=== PATIENT | female | born 1985 | race Caucasian/White ===

== ENCOUNTER → 2018-04-13 11:32 | Outpatient (CLI) | payer OTHER, SELFPAY ==
[2018-04-13 13:17] LABS: Hematocrit 37.2 % (36-46); Hemoglobin 12.7 g/dL (12.0-16.0)
[2018-04-13 14:19] LABS: GTT (PREG) 1 Hour PP 50gm Dose 98 mg/dL (76-139)
== END ==
PROVIDERS: Visit Provider Obstetrics & Gynecology
DX: Z34.82 Encounter for supervision of other normal pregnancy, second trimester (principal)
CPT/HCPCS: 36415; 82950; 85014; 85018

== ENCOUNTER 2018-04-22 09:18 | Outpatient (CLI) | payer OTHER, SELFPAY ==
--- NOTE | 2018-04-22 10:43 | PM.OBTRLD ---
Visit Information Visit Information Date of evaluation: 04/22/18 Primary OB Provider: Lynne Bland Reason for Evaluation: Yes non-stress test Comments/Additional reasons for admission: 33wks h/o stillbirth anxious Evaluation Evaluation Baseline heart rate: 145 Variability: Moderate (11-25) monitor accelerations: Present monitor decelerations: Absent Category of Tracing: I
== END 2018-04-22 10:50 | disposition home or self-care (01) ==
LOC: LABOR 10:12 → OB 04-23 13:09
PROVIDERS: Visit Provider Obstetrics & Gynecology
DX: O09.293 Supervision of pregnancy with other poor reproductive or obstetric history, third trimester (principal); Z3A.33 33 weeks gestation of pregnancy
CPT/HCPCS: 59025; G0378; G0379

== ENCOUNTER → 2018-05-12 14:54 | Outpatient (CLI) | payer OTHER, SELFPAY ==
[2018-05-13 14:20] LABS: Strep Grp B PCR POS for Grp B Strep
== END ==
PROVIDERS: Visit Provider Obstetrics & Gynecology
DX: Z34.83 Encounter for supervision of other normal pregnancy, third trimester (principal)
CPT/HCPCS: 87653

== ENCOUNTER 2018-05-12 15:22 | Outpatient (CLI) | payer OTHER, SELFPAY ==
--- NOTE | 2018-05-13 09:09 | PM.OBTRLD ---
Visit Information Visit Information Date of evaluation: 05/12/18 Primary OB Provider: Lynne Bland Reason for Evaluation: Yes non-stress test Comments/Additional reasons for admission: Decreased movement Evaluation Evaluation Baseline heart rate: 130 Variability: Moderate (11-25) monitor accelerations: Present monitor decelerations: Absent Category of Tracing: I Diagnosis, Plan/Disposition Plan/Disposition Plan: Discharge to home kick counts OB Disposition: home
== END 2018-05-12 15:57 | disposition home or self-care (01) ==
LOC: LABOR 15:40 → OB 05-14 14:45
PROVIDERS: Visit Provider Obstetrics & Gynecology
DX: Z34.83 Encounter for supervision of other normal pregnancy, third trimester (principal); Z3A.36 36 weeks gestation of pregnancy
CPT/HCPCS: 59025; 87653; G0378; G0379

== ENCOUNTER 2018-05-19 11:26 | Outpatient (CLI) | payer OTHER, SELFPAY ==
--- NOTE | 2018-05-20 20:45 | P.TNLD_ITS ---
Visit Information Visit Information Date of evaluation: 05/19/18 Primary OB Provider: Lynne Bland Reason for Evaluation: Yes non-stress test non-stress test reason: other ( history of stillbirth) Comments/Additional reasons for admission: history of stillbirth Evaluation Evaluation Baseline heart rate: 150 Variability: Moderate (11-25) monitor accelerations: Present monitor decelerations: Absent Uterine Contraction Intensity: Mild Category of Tracing: I
== END 2018-05-19 12:25 | disposition home or self-care (01) ==
LOC: LABOR 13:56 → OB 11-02 15:22
PROVIDERS: Visit Provider Obstetrics & Gynecology
DX: Z34.83 Encounter for supervision of other normal pregnancy, third trimester (principal); Z3A.37 37 weeks gestation of pregnancy
CPT/HCPCS: 59025; G0378; G0379

== ENCOUNTER 2018-05-26 15:08 | Outpatient (CLI) | payer OTHER, SELFPAY ==
--- NOTE | 2018-05-26 15:50 | PM.OBTRLD ---
Visit Information Visit Information Date of evaluation: 05/26/18 Primary OB Provider: Lynne Bland Reason for Evaluation: Yes non-stress test non-stress test reason: other (h/o stillbirth) Evaluation Evaluation Baseline heart rate: 135 Variability: Moderate (11-25) monitor accelerations: Present monitor decelerations: Absent Category of Tracing: I Diagnosis, Plan/Disposition Final Diagnosis (1) 38 weeks gestation of : Current Visit: Yes Status: Acute (2) History of stillbirth: Current Visit: Yes Status: Acute Plan/Disposition Plan: 39 weeks History of stillbirth Plan: Induction 06/02/18
== END 2018-05-26 15:55 | disposition home or self-care (01) ==
LOC: OB 05-28 14:39
PROVIDERS: Visit Provider Obstetrics & Gynecology
DX: Z34.83 Encounter for supervision of other normal pregnancy, third trimester (principal); Z3A.38 38 weeks gestation of pregnancy
CPT/HCPCS: 59025; G0378; G0379

== ENCOUNTER 2018-06-02 07:06 | Inpatient (IN) | payer OTHER, SELFPAY ==
[2018-06-02 08:53] LABS: Add Manual Diff / Slide Review NO; Basophils Percent Auto 0.2 % (0-2); Eosinophils Percent Auto 0.6 % (2-4); Hematocrit 36.9 % (36-46); Hemoglobin 12.7 g/dL (12.0-16.0); Lymphocytes Percent Auto 14.3 % (25-40); Mean Corpuscular HGB Conc 34.5 % (30-36); Mean Corpuscular Hemoglobin 30.9 PG (26-34); Mean Corpuscular Volume 89.5 fL (80-100); Neutrophils Absolute Auto 8000 /uL (3000-5900); Neutrophils Percent Auto 77.9 % (50-75); Platelet Count 172 X10^3/uL (150-400); Red Blood Cell Count 4.12 X10^6/uL (4.0-5.2); White Blood Cell Count 10.2 X10^3/uL (4.5-11.0)
[2018-06-02] MEDS: LACTATED RINGERS 1,000 ML 100 ML IV ×2 (09:00→20:25)
[2018-06-02] MEDS: PENICILLIN G POTASSIUM 5,000,000 UNIT in DEXTROSE 5% IN WATER 250 ML IV (09:14)
[2018-06-02 11:25] VITALS: BP 116/60
[2018-06-02] MEDS: PENICILLIN G POTASSIUM 3,000,000 UNIT/50 ML FROZ.PIGGY 100 UNIT IV ×3 (12:57→20:25)
[2018-06-02] MEDS: OXYTOCIN PREMIX 30 UNIT/500 ML PLAST..BAG IV (14:55)
--- NOTE | 2018-06-02 20:12 | PM.OBHP.1 ---
OB HPI Date/Time Date of admission: 06/02/18 Date Patient Seen: 06/02/18 Time Patient Seen: 07:35 History of Present Condition Chief complaint: LABOR AND DELIVERY : 4 Para: 3 Estimated Date of Delivery: 05/25/18 Estimated Gestational Age (weeks): 41+ 1 Narrative: Radha Melo is a 32 year old female 4 para 3 at 41-,1/7 weeks gestation for induction of labor Patient has a history of a stillbirth Indications Indication for induction OB: post dates History of Present care: good care, initiated at week # (12) and number of visits (11) Dating criteria: LMP confirmed by 1st trimester US Ultrasounds: normal 1st trimester US and normal mid trimester US Obstetrical complications: none Medical complications: none Preadmission Labs Blood type: AB (+) positive -: Antibody screen: negative, GBS status: positive, HBsAG: negative, HIV: negative, HSV 1: positive, HSV 2: negative and RPR/VDLR: negative -: Chlamydia screen: not detected and Gonorrhea screen: not detected -: Rubella: immune and Varicella: immune HCT: 37.2 HCAB: negative PAP: Normal Urine: Negative 1 hr GTT: 98 Prior (ies) History: 3 spontaneous vaginal deliveries Last delivery was a stillbirth Evaluation Evaluation Baseline heart rate: 135 Variability: Moderate (11-25) monitor accelerations: Present monitor decelerations: Absent Category of Tracing: I Cervical dilation (cm): 2 Cervical effacement (%): 80 station: -1 Laboratory results: Laboratory Tests 06/02/18 06/02/18 08:39 08:39 WBC 10.2 RBC 4.12 Hgb 12.7 Hct 36.9 MCV 89.5 MCH 30.9 MCHC 34.5 RDW 14.0 Plt Count 172 Neut % (Auto) 77.9 H Lymph % (Auto) 14.3 L [place] % (Auto) 7.0 Eos % (Auto) 0.6 L Baso % (Auto) 0.2 Neut # (Auto) 8000 H Blood Type AB Positive Antibody Screen Negative PFSH Social History Smoking Status: Never smoker Meds Home Medications Medication Instructions Recorded Confirmed Type Glucose: Home Monitor ea TOPICAL TID #1 12/23/17 Rx Lancet: Device ea TOPICAL TID #90 12/23/17 Rx Test Strips - Freestyle str TOPICAL TID #90 12/23/17 Rx zolpidem 10 mg tablet 10 mg PO BEDTIME PRN #20 tab 04/22/18 Rx Allergies Allergy/AdvReac Type Severity Reaction Status Date / Time heparin [HEPARIN] Allergy Severe decreased Unverified 01/14/18 12:48 platelets Exam Vital Signs (past 8 hours): Generally: A well-developed, well-nourished white female, no acute distress Lungs: Clear to auscultation bilaterally Cardiovascular: Regular rate and rhythm Fundal height: 40 cm Estimated weight: 7 and 0.5 lb Extremities: Trace edema, negative Homans Objective Labs Result Diagrams: 06/02/18 08:39 Labs: Laboratory Results - last 24 hr 06/02/18 06/02/18 08:39 08:39 WBC 10.2 RBC 4.12 Hgb 12.7 Hct 36.9 MCV 89.5 MCH 30.9 MCHC 34.5 RDW 14.0 Plt Count 172 Neut % (Auto) 77.9 H Lymph % (Auto) 14.3 L [place] % (Auto) 7.0 Eos % (Auto) 0.6 L Baso % (Auto) 0.2 Neut # (Auto) 8000 H Blood Type AB Positive Antibody Screen Negative Assessment and Plan (1) 41 weeks gestation of : Current visit: Yes Status: Acute (2) Encounter for induction of labor: Current visit: Yes Status: Acute Plan: Plan: Assessment: 32-year-old 4 para 3 at 41-,1/7 weeks gestation for induction of labor History of still Plan: Pitocin per protocol # 2 Epidural as necessary Expected management to spontaneous vaginal delivery Group B strep protocol
--- NOTE | 2018-06-03 | PM.OBPRVD ---
Events: No Care Delivery date: 06/03/18 Induction method: per pitocin protocol Delivery augmentation: rupture of membranes Delivery monitor: external FHT and external uterine Route of delivery: Episiotomy description: None Laceration description: Superficial Delivery repair: chromic Anesthesia type: Epidural Complications: None Narrative: Patient complete and pushed x1. At 11:46 p.m., a live male infant delivered spontaneously over an intact perineum. A tight nuchal cord x1 was cut on the perineum. The remainder of the body delivered without difficulty and was placed on mom's abdomen. Cord bloods were obtained. The placenta delivered intact with a 3 vessel cord at 11:50 p.m.. Fundus was massaged to firm. Pitocin was given in the IV fluids. A superficial perineal laceration was repaired with 3 0 chromic. Hemostasis achieved. Estimated blood loss 100 cc. Apgars 8 at 1 min and 9 at 5 min. . Epidural analgesia. Mom and infant stable to recovery. Plan for aftercare: To Recovery
[2018-06-03] MEDS: IBUPROFEN 600 MG TABLET PO ×2 (04:12→11:15)
[2018-06-03 06:36] LABS: Hematocrit 35.6 % (36-46)
[2018-06-03] MEDS: PRENATAL VIT,CALC/IRON/FOLIC 1 TABLET 1 TAB PO (11:15)
[2018-06-03] MEDS: DOCUSATE 250 MG CAPSULE PO (11:15)
[2018-06-03 15:10] VITALS: BP 120/81; PULSE 71; RESP 16; TEMP 36.8
--- NOTE | 2018-06-04 11:04 | PM.OBDS.1 ---
Discharge Providers Date of admission: 06/02/18 07:06 Consults: 06/03/18 01:40 Consult to Pediatric Anesthesiologist Routine Comment: Discharge provider: Lynne Bland MD Discharge Date: 06/02/18 Summary Date Patient Seen: 06/02/18 Time Patient Seen: 13:45 Hospital Course: Patient is a 32-year-old 4 para 3 who presented on 06/01/2018 for induction of labor. She received a Ortiz bulb for cervical dilation. She received 2 doses of antibiotics for group B strep prophylaxis before artificial rupture of membranes. She received Pitocin augmentation. She progressed to complete dilation and pushed once. She had a spontaneous vaginal delivery with a very superficial perineal laceration. Her course was unremarkable and she was discharged home on day # 1. Peripartum Data Delivery Method: Natural Vaginal Laceration description: Superficial (Perineal) Episiotomy description: None Procedures: Ortiz bulb placement in the cervix Artificial rupture of membranes Pitocin augmentation Spontaneous vaginal delivery complications: none Discharge Diagnosis (1) 41 weeks gestation of : Status: Acute (2) Encounter for induction of labor: Status: Acute Status at Discharge Functional status at discharge: independent ambulation Overall status at discharge: patient is progressing back to baseline Time Spent with Patient Total time spent providing and/or coordinating discharge services: Less than 30 minutes Objective Labs Result Diagrams: 06/03/18 06:20 Discharge Plan Discharge Plan Patient Disposition: Home Discharge comment: Call with fever, chills or bleeding vaginally more than a pad in an hour Discharge Med Rec/Prescriptions Follow up/Referrals: Lynne Bland MD [Physician] - 6 Weeks (Appointment with on at 12:00 noon. clinic on June 11, at 1200 noon.) Provider Discharge Instructions Diet: Diet as Tolerated Activity: No intercourse Skin/Wound/Dressing Care Report to your healthcare provider any signs of infection, such as:: chills, fever, increased pain and unusual drainage Visit Report/Discharge Packet Instructions: DI for Labor and Delivery, Vaginal Visit Report Forms: Stroke Signs & Symptoms Discharge Data Attending Provider: Lynne Bland Admit Date/Time: 06/02/18 07:06 Discharges patient from system. Discharge Date/Time: 06/03/18 16:55
== END 2018-06-03 16:55 | disposition home or self-care (01) | DRG 775 ==
PROVIDERS: Admitting Provider Obstetrics & Gynecology; Visit Provider Obstetrics & Gynecology
DX: O48.0 Post-term pregnancy (principal); Z3A.41 41 weeks gestation of pregnancy; Z37.0 Single live birth; O99.824 Streptococcus B carrier state complicating childbirth; O69.81X0 Labor and delivery complicated by cord around neck, without compression, not applicable or unspecified
CPT/HCPCS: 01967; 36415; 59050; 59400; 85014; 85018; 85025; 86850; 86900; 86901; G0379; J2540; J2590

== ENCOUNTER → 2020-05-02 11:28 | Outpatient (CLI) | payer OTHER, SELFPAY ==
[2020-05-02 12:50] LABS: HCG Quantitative /Beta subunit < 2.4 mIU/mL
== END ==
PROVIDERS: PCP Family Medicine; Referring Provider Obstetrics & Gynecology; Visit Provider Obstetrics & Gynecology
DX: N93.9 Abnormal uterine and vaginal bleeding, unspecified (principal)
CPT/HCPCS: 36415; 84702

== ENCOUNTER 2020-05-21 18:44 | Emergency (ER) | payer OTHER, SELFPAY ==
[2020-05-21 18:53] VITALS: BP 136/76; BP 136/87; PULSE 86; PULSE 88; RESP 16; TEMP 36.8; O2SAT 99; BMI 25.7
[2020-05-21 19:00] VITALS: BP 131/81; PULSE 87; O2SAT 99
--- NOTE | 2020-05-21 19:00 | DI.CT.S_ITS ---
PROCEDURE: CT HEAD/BRAIN WO CON INDICATIONS: hit head, ?loc, dizzy TECHNIQUE: Noncontrast 4.5 mm thick angled axial sections acquired from the foramen magnum to the vertex, with coronal and sagittal reformats. For radiation dose reduction, the following was used: automated exposure control, adjustment of mA and/or kV according to patient size. COMPARISON: None. FINDINGS: Image quality: Excellent. CSF spaces: Basal cisterns are patent. No extra-axial fluid collections. Ventricles are normal in size and shape. Brain: No midline shift. No acute intracranial hemorrhage or mass effect. Lewis-white matter interface is normal. Skull and face: Calvarium and visualized facial bones are intact, without suspicious lesions. Sinuses: Visualized sinuses and mastoids are clear. IMPRESSION: No acute intracranial abnormality. Dictated by: Jonny Lopes M.D. on 05/21/2020 at 19:29 Approved by: Jonny Lopes M.D. on 05/21/2020 at 19:31
--- NOTE | 2020-05-21 19:00 | DI.CT.S_ITS ---
PROCEDURE: CT CERVICAL SPINE WO CON INDICATIONS: glf, midline pain TECHNIQUE: Noncontrast 3 mm thick sections acquired from the skull base to the T4 level. Sagittal and coronal reformats were then constructed. For radiation dose reduction, the following was used: automated exposure control, adjustment of mA and/or kV according to patient size. COMPARISON: None. FINDINGS: Image quality: Excellent. Bones: No acute fractures or dislocations. Visualized superior ribs are intact. Mild straightening of the cervical spine is most likely positional, but may be related to muscle spasm. Soft tissues: Prevertebral soft tissues are normal in thickness. No paravertebral hematomas. No apical pneumothoraces. IMPRESSION: No acute cervical spine fracture or subluxation. Dictated by: Jonny Lopes M.D. on 05/21/2020 at 19:31 Approved by: Jonny Lopes M.D. on 05/21/2020 at 19:35
[2020-05-21 19:30] VITALS: PULSE 76; O2SAT 99
--- NOTE | 2020-05-21 19:46 | PC.NURSE ---
C-collar removed from patient by MATERIAL MAN. Tolerated well.
[2020-05-21 20:00] VITALS: PULSE 73; O2SAT 99
--- NOTE | 2020-05-21 20:05 | ED_ITS ---
HPI - Head Injury <JEANIE Dooley- - Last Filed: 05/21/20 20:19> General Chief complaint: Head Injury Stated complaint: fall this morning, hit her head Time Seen by Provider: 05/21/20 18:52 Source: patient Mode of arrival: Ambulatory Limitations: no limitations History of Present Illness HPI Narrative: The patient is a 34-year-old female nonsmoker two years who presents with a chief complaint of falling and injuring her this morning. She slipped getting out of bed fall and landed with her head and neck against a wooden corner piece of her bed. She is not sure whether not she lost consciousness, but if she did but was not for very long. She states she fell asleep right away. She states that she has felt off all day, difficulty making decisions, feeling very foggy, feels pressure in her head as well as some light some dizziness. She complains of pain in her neck and her back, describes as an ache or pressure. She has not taken anything to feel better. She states that she comes in because her family is very worried about her and the level of her ?fogginess.She denies any numbness or tingling. She does not note any incontinence. Related Data Previous Rx's Medication Instructions Recorded Double Electric Breast Pump #1 ea 07/31/18 cyclobenzaprine 10 mg PO TID PRN #20 tab 05/21/20 ketorolac 10 mg PO TID PRN #15 tab 05/21/20 Allergies Allergy/AdvReac Type Severity Reaction Status Date / Time heparin [HEPARIN] Allergy Severe decreased Verified 07/14/18 12:12 platelets Review of Systems <MATTHIAS Dooley - Last Filed: 05/21/20 20:19> Review of Systems Narrative: GENERAL: Denies chills, fatigue, malaise, fever, sweats. HEENT: Denies sinus pain, ear pain, sore throat, difficulty swallowing, dizziness. RESPIRATORY: Denies dyspnea, cough, wheezing, hemoptysis, sputum. CARDIOVASCULAR: Denies chest pain, palpitations, orthopnea, edema, GASTROINTESTINAL: Denies nausea, vomiting, abdominal pain, diarrhea, constip ation, melena. : Denies dysuria, frequency, incontinence, hematuria, urinary retention. MUSCULOSKELETAL: see HPI SKIN: See HPI NEUROLOGIC: See HPI PSYCHIATRIC: No concerning psychosocial issues. 12 point review of systems is negative except for those stated above Patient History <MATTHIAS Dooley - Last Filed: 05/21/20 20:19> Social History Smoking Status: Never smoker Smoking Status: Never smoker alcohol intake frequency: 0-2 drinks per day Substance Use Type: does not use Exam <MATTHIAS Dooley - Last Filed: 05/21/20 20:19> Narrative Exam Narrative: GENERAL: This is a well-nourished, well-developed patient, no acute distress HEAD: Atraumatic. Normocephalic. No temporal or scalp tenderness. EYES: Pupils equal round and reactive. Extraocular motions intact. No scleral icterus. No injection or drainage. ENT: Nose without bleeding, purulent drainage or septal hematoma. Throat without erythema, tonsillar hypertrophy or exudate. Uvula midline. Airway patent. NECK: Trachea midline. No JVD or lymphadenopathy. Supple, nontender, no meningeal signs. CARDIOVASCULAR: Regular rate and rhythm RESPIRATORY: Clear to auscultation. Breath sounds equal bilaterally. No wheezes, rales, or rhonchi. No cough. No increased respiratory effort. No accessory muscle use. GASTROINTESTINAL: Abdomen soft, non-tender, nondistended. No hepato- splenomegaly, or palpable masses. No guarding. EXTREMITIES: No clubbing, cyanosis, or edema. No joint tenderness, effusion, or edema noted. BACK: Pain to palpation midline C-spine, no pain to palpation of T or L-spine that her midline. Pain to bilateral paraspinal muscle palpation of T-spine. NEURO: AOx3. Difficulty answering questions noted. SKIN: No rash or erythema on visible skin Initial Vital Signs Initial Vital Signs: Vital Signs Temperature 98.2 F 05/21/20 18:53 Pulse Rate 86 05/21/20 18:53 Respiratory Rate 16 05/21/20 18:53 Blood Pressure 136/87 05/21/20 18:53 Pulse Oximetry 99 05/21/20 18:53 <Bret Vicente DO - Last Filed: 05/21/20 20:22> Initial Vital Signs Initial Vital Signs: Vital Signs Temperature 98.2 F 08/16/20 18:53 Pulse Rate 86 05/21/20 18:53 Respiratory Rate 16 05/21/20 18:53 Blood Pressure 136/87 05/21/20 18:53 Pulse Oximetry 99 05/21/20 18:53 Scores <MATTHIAS Dooley - Last Filed: 05/21/20 20:19> GCS Alyssa coma scale eye opening: Spontaneous Alyssa coma scale verbal response: Orientated [place] coma scale motor response: Obey commands Alyssa coma scale total score: 15 Nexus Score for C-Spine Focal Neurologic deficit present: No Midline spinal tenderness present: Yes Altered level of conciousness present: No Intoxication present: No Distracting Injury Present: No Nexus Criteria for C-spine: 1 Course <MATTHIAS Dooley - Last Filed: 05/21/20 20:19> Orders Ordered: ED Orders 05/21/20 19:00 CT cervical spine wo con Stat CT head/brain wo con Stat Discontinued Medications Cyclobenzaprine HCl (Flexeril) 10 mg PO NOW ONE Stop: 05/21/20 19:47 Last Admin: 05/21/20 19:51 Dose: Not Given Documented by: SHIRLEY Ketorolac Tromethamine (Toradol) 30 mg IM NOW ONE Stop: 05/21/20 19:47 Last Admin: 05/21/20 19:52 Dose: Not Given Documented by: SHIRLEY Vital Signs Vital signs: Vital Signs - 8 hr 05/21/20 18:53 05/21/20 19:00 05/21/20 19:30 Temperature 98.2 F Pulse Rate 88 87 76 Respiratory Rate 16 Blood Pressure 136/76 131/81 Pulse Oximetry 99 99 99 <Bret Vicente DO - Last Filed: 05/21/20 20:22> Orders Ordered: ED Orders 05/21/20 19:00 CT cervical spine wo con Stat CT head/brain wo con Stat Discontinued Medications Cyclobenzaprine HCl (Flexeril) 10 mg PO NOW ONE Stop: 05/21/20 19:47 Last Admin: 05/21/20 19:51 Dose: Not Given Documented by: SHIRLEY Ketorolac Tromethamine (Toradol) 30 mg IM NOW ONE Stop: 05/21/20 19:47 Last Admin: 05/21/20 19:52 Dose: Not Given Documented by: SHIRLEY Vital Signs Vital signs: Vital Signs - 8 hr 05/21/20 18:53 05/21/20 19:00 05/21/20 19:30 Temperature 98.2 F Pulse Rate 88 87 76 Respiratory Rate 16 Blood Pressure 136/76 131/81 Pulse Oximetry 99 99 99 MDM - Head Injury <MATTHIAS Dooley - Last Filed: 05/21/20 20:19> Imaging Data CT scan - head: Radiologist's Impression: [address] [place] [id number] [address] Scan Report Signed Patient: Radha Melo AMR#: [id number] : 1985Acct:[id number] Age/Sex: 34 / FDate of Service: 05/21/20 Loc: ED Accession Number: [id number] Procedure: CT head/brain wo con Ordering Provider: No George PROCEDURE: CT HEAD/BRAIN WO CON INDICATIONS: hit head, ?loc, dizzy TECHNIQUE: Noncontrast 4.5 mm thick angled axial sections acquired from the foramen magnum to the vertex, with coronal and sagittal reformats. For radiation dose reduction, the following was used: automated exposure control, adjustment of mA and/or kV according to patient size. COMPARISON: None. FINDINGS: Image quality: Excellent. CSF spaces: Basal cisterns are patent. No extra-axial fluid collections. Ventricles are normal in size and shape. Brain: No midline shift. No acute intracranial hemorrhage or mass effect. Lewis-white matter interface is normal. Skull and face: Calvarium and visualized facial bones are intact, without suspicious lesions. Sinuses: Visualized sinuses and mastoids are clear. IMPRESSION: No acute intracranial abnormality. Dictated by: Jonny Lopes M.D. on 05/21/2020 at 19:29 Approved by: Jonny Lopes M.D. on 05/21/2020 at 19:31 CT - cervical spine: Radiologist's Impression: [address] [place] [id number] Scan Report Signed Patient: Radha Melo AMR#: [id number] : 1985Acct:[id number] Age/Sex: 34 / FDate of Service: 05/21/20 Loc: ED Accession Number: [id number] Procedure: CT cervical spine wo con Ordering Provider: No GeorgeBC PROCEDURE: CT CERVICAL SPINE WO CON INDICATIONS: glf, midline pain TECHNIQUE: Noncontrast 3 mm thick sections acquired from the skull base to the T4 level. Sagittal and coronal reformats were then constructed. For radiation dose reduction, the following was used: automated exposure control, adjustment of mA and/or kV according to patient size. COMPARISON: None. FINDINGS: Image quality: Excellent. Bones: No acute fractures or dislocations. Visualized superior ribs are intact. Mild straightening of the cervical spine is most likely positional, but may be related to muscle spasm. Soft tissues: Prevertebral soft tissues are normal in thickness. No paravertebral hematomas. No apical pneumothoraces. IMPRESSION: No acute cervical spine fracture or subluxation. Dictated by: Jonny Lopes M.D. on 05/21/2020 at 19:31 Approved by: Jonny Lopes M.D. on 05/21/2020 at 19:35 [facility] Narrative Medical decision making narrative: The patient is a 34-year-old female who presents with a chief complaint of hitting her head and neck after ground level fall this morning when she slipped out of bed. Given that she is not sure wheth er not she lost consciousness, difficulty following commands and answering questions during her exam initially, we did elect to scan her head to rule out any bleeds or fractures. Given that she had midline C-spine tenderness to palpation, we also scanned her C-spine as she was unable to be cleared by nexus criteria. I discussed at length with the patient the importance of brain rest, not doing any strenuous activities for the next few days, the importance of following up with primary care provider in the next 48-72 hours. I did offer the patient Toradol and Flexeril for her muscle pain and spasm, but she declined at this point time as she would like to breastfeed tonight. She did request prescriptions, with full understanding that she cannot breastfeed while taking these medications. I sent these to [facility] in [place]. I discussed coming back to the emergency department for any acute concerns. Patient and sister have no questions or concerns upon discharge and state understanding of return precautions as well as follow-up care. Discharge Plan Departure Patient Disposition: Home Clinical Impression: Neck muscle spasm Concussion without loss of consciousness Qualifiers: Encounter type: initial encounter Qualified Code(s): S06.0X0A - Concussion without loss of consciousness, initial encounter Instructions: DI for Concussion, DI for Whiplash, DI for Muscle Spasm Activity Restrictions/Additional Instructions: Thank you for trusting us with your care today. As discussed, your imaging had no acute findings. I believe that you have a concussion. Please rest your brain as much as possible over the next few days. I sent 2 prescriptions to [facility] in [place]. This includes cyclobenzaprine which is a muscle relaxer in ketorolac or Toradol, which is an NSAID. I have given you a prescription of Toradol. This is an NSAID. Do not combine it with other NSAIDs such as Aleve or ibuprofen. I suggest taking it with some food, as it can irritate your stomach. As discussed, these medications need to be avoided while . Please follow-up with primary care provider in the next few days. Please come back to the emergency department for any acute concerns such as sebas rological changes etcetera Prescriptions: New ketorolac 10 mg tablet 10 mg PO TID PRN (Reason: pain) Qty: 15 RF: 0 cyclobenzaprine 10 mg tablet 10 mg PO TID PRN (Reason: muscle spasm) Qty: 20 RF: 0 No Action (DME) Double Electric Breast Pump Qty: 1 RF: 0 Referrals: Emily Frazier DO [Primary Care Provider] - <Bret Vicente DO - Last Filed: 05/21/20 20:22> [facility] Dr Vicente Co-Sign Statement: I was available for consultation during this patient's emergency department visit. This chart is signed by myself for administrative purposes only. I did not have direct contact with this patient during this visit. They were seen independently by the APC.
[2020-05-21 20:17] VITALS: BP 111/72; PULSE 73; TEMP 36.9; O2SAT 98
--- NOTE | 2020-07-31 09:14 | PC.NURSE ---
took a call from patient today 07/31/20909 requesting to speak with someone to have her medical record changed for insurance coverage reasons. Patient given contact number for medical records.
== END 2020-05-21 20:24 | disposition home or self-care (01) ==
PROVIDERS: Emergency Provider Nurse Practitioner Family; PCP Family Medicine
DX: S06.0X0A Concussion without loss of consciousness, initial encounter (principal); M62.838 Other muscle spasm; W22.8XXA Striking against or struck by other objects, initial encounter
CPT/HCPCS: 70450; 72125; 99284

== ENCOUNTER → 2020-05-31 16:43 | Outpatient (CLI) | payer OTHER, SELFPAY ==
[2020-05-31 18:21] LABS: Cancer Antigen 125 6.3 U/mL (0-35)
== END ==
PROVIDERS: PCP Family Medicine; Referring Provider Obstetrics & Gynecology; Visit Provider Obstetrics & Gynecology
DX: N83.292 Other ovarian cyst, left side (principal)
CPT/HCPCS: 36415; 86304

== ENCOUNTER → 2020-07-06 14:10 | Outpatient (CLI) | payer OTHER, SELFPAY ==
--- NOTE | 2020-07-06 14:29 | DI.CT.S_ITS ---
PROCEDURE: CT ABDOMEN PELVIS WO/W CON INDICATIONS: Eval Left kidney pain Complex Left Ov Cyst TECHNIQUE: Optional 5 mm thick noncontrast images acquired from the diaphragm to the symphysis pubis. After the administration of intravenous contrast, 5 mm thick images acquired from the diaphragm to the symphysis pubis after a 10-minute delay. 2 mm thick coronal and sagittal reformats were then performed of the kidneys and ureters. For radiation dose reduction, the following was used: automated exposure control, adjustment of mA and/or kV according to patient size. COMPARISON: [facility], [facility], US PELVIC COMPLETE, 05/31/2020, 16:34. FINDINGS: Image quality: Excellent. Lung bases: Lung bases are clear. Heart size is normal. Urinary system: Both kidneys are normal in size, without hydronephrosis or nephrolithiasis on pre-contrast images. Scarring and cortical thinning in the mid left kidney. No solid renal mass. No perinephric fat stranding. There is normal bilateral renal enhancement. Renal calyces appear normal in morphology when filled with contrast. Opacified portions of both ureters demonstrate normal caliber. No filling defect within the opacified portions of the ureter. Bladder wall thickness is normal. No calcified bladder stones. Other solid organs: Liver is normal in size and enhancement. Gallbladder is surgically absent. Biliary system is non dilated. Pancreas enhances normally. Spleen is normal in size and enhancement. No adrenal nodules. Peritoneum and bowel: Food residue in the stomach. Bowel loops demonstrate normal wall thickness and caliber. No free fluid or air. Appendix is at the upper limits in caliber. Nodes and vessels: No retroperitoneal or mesenteric adenopathy by size criteria. Aorta and inferior vena cava are normal in size. Abdominal wall: Tiny fat containing periumbilical hernia. Pelvis: A small left ovarian cyst measuring 1.8 x 1.8 cm, (3/176), likely corresponding to the hemorrhagic cyst seen on pelvic ultrasound 05/31/2020 which measured 2.7 x 2.6 x 2.5 cm (prior ultrasound measurement box says right but the history provided reports left ovary). No additional cyst in the right ovary is seen. Retroverted uterus. No pathologic free pelvic fluid. No definite inguinal hernias. No adenopathy. Bones: No suspicious bony lesions. No vertebral body compression fractures. IMPRESSION: 1. No kidney stones. No hydronephrosis. 2. Mild scarring in the mid left kidney. Etiology uncertain. 3. No solid renal mass. No upper urinary tract filling defect within the opacified portions. 4. Small left ovarian cyst likely corresponding to the previously seen cyst on outside ultrasound 05/31/2020. This appears decreased in size and most likely represents a hemorrhagic cyst. -if clinically indicated follow-up pelvic ultrasound in 6-12 weeks could be performed. Dictated by: Gerson Quintana M.D. on 07/06/2020 at 15:55 Approved by: Gerson Quintana M.D. on 07/06/2020 at 16:12
== END ==
PROVIDERS: PCP Family Medicine; Referring Provider Obstetrics & Gynecology; Visit Provider Obstetrics & Gynecology
DX: N23 Unspecified renal colic (principal); N83.292 Other ovarian cyst, left side; Z90.49 Acquired absence of other specified parts of digestive tract
CPT/HCPCS: 74178; Q9967

== ENCOUNTER → 2022-09-05 08:28 | Outpatient (CLI) | payer OTHER, SELFPAY ==
--- NOTE | 2022-09-05 08:30 | DI.RAD.S_ITS ---
PROCEDURE: FL BARIUM SWALLOW W SPEECH INDICATIONS: DYSPHAGIA COMPARISON: None. TECHNIQUE: Examination was conducted in conjunction with speech pathology per standard protocol. In the lateral projection, filming was performed of the patient swallowing. AP projection filming may also be performed with patient swallowing. COMPARISON: FINDINGS: Function: The oral preparatory phase appears normal, with proper containment. The subsequent oral propulsive phase, pharyngeal phase, and esophageal phase of swallowing also appear normal with all proffered substances. No laryngotracheal penetration or aspiration. No pathologic vallecular pooling. Morphology: No cricopharyngeal bar is identified. No cervical esophageal webs. No Zenker's diverticulum. No strictures. IMPRESSION: No laryngeal penetration or aspiration. Please see separate speech pathologist's report for detail. Dictated by: Estefanía Quintero M.D. on 09/05/2022 at 9:33 Approved by: Estefanía Quintero M.D. on 09/05/2022 at 9:33
--- NOTE | 2022-09-05 10:30 | ST.SWALLOW ---
Visit Care Team Role Provider Type Emily Frazier DO Primary Care Provider Non-Staff Specialty: Family Practice Address: [address] [place] [address], [phone] Email: Wally Tellez MD Attending Provider Physician Referring Provider Specialty: Ear, Nose, Throat Address: [address] [place] [address], [id number] Email: [email or web address] Modified Barium Swallow Study [employer] Modified Barium Swallow Study Start: 09/05/22 09:57 Freq: Status: Active Protocol: Document 09/05/22 09:57 CATYK (Rec: 09/05/22 10:30 LNK [id number]) Modified Barium Swallow Study Total Time Visit Start Time 08:30 Visit Stop Time 09:00 Total Visit Minutes [address] Tellez Reason for Referral dysphagia Setting Setting Outpatient Care Patient Information Identification Type Name,Date of Patient History Pt was seen for a Modified Barium Swallow Study (MBSS) at the referral of Dr. Tellez, ENT. According to Dr. Tellez 's noted and interview of the pt, she began having changes to her swallowing about 2 years ago. At that time, she noted, she had fallen and sustained a concussion from which she reports a complete recovery. Relative to her swallowing, pt also reported that, in March 2022, she had hiccups and with one hiccup, she felt pain in her laryngeal area. Since March, pt reports a clicking sound when she swallows. Additionally pt described apples and lettuce as the foods likely to cause difficulty with swallowing. Subjective Observations pt was seated in the fluoroscopy chair with procedures and instructions described. Pt indicated she understood and agreed to continue. Patient Positioning Position View Lat-A/P Imaging Lateral View Textures Administered Trials Presented Thin Liquid via Spoon,Thin Liquid via Cup,Pudding Thick Liquid via Spoon,Regular Textures,Barium Tablet Oral Phase Source: MBSIMP (TM) (C) Bolus Specific Scoring Grid Lip Closure No Impairment (WNL) Tongue Control During Bolus Hold No Impairment (WNL) Bolus Prep/Mastication No Impairment (WNL) Bolus Transport/Lingual Motion No Impairment (WNL) A/P Lingual Propulsion Delay No Oral Residue No Impairment (WNL) Residue Clearing No Impairment (WNL) Nasal Regurgitation No Additional Oral Phase Observations OME noted to be WNL; DKS was WNL Dentition was natural in good hygiene. Oral phase of swallow observed to be WNL with good mastication, rotary chew, no oral stasis, normal AP transition and good bolus control Pharyngeal Phase Source: MBSIMP (TM) (C) Bolus Specific Scoring Grid Delayed Initiation of Pharyngeal Swallow No Soft Palate Elevation No Impairment (WNL) Residue Along the Tongue Base No Vallecular Residue No Laryngeal Vestibular Closure No Impairment (WNL) Posterior Pharyngeal Wall Residue No Upper Esophageal Sphincter Opening No Impairment (WNL) Residue in the Pyriform Sinuses No Esophageal Clearance Upright Position No Impairment (WNL) Pharyngoesophageal Backflow Observed No Additional Pharyngeal Phase Observations Pharyngeal phase of swallow observed to be WNL for form and function. No pharyngeal pooling observed, no laryngeal penetration nor tracheal aspiration noted. A/P View Textures Administered Trials Presented Barium Tablet A/P View Observations Pharyngeal Contraction No Impairment (WNL) Esophageal Function No Impairment (WNL) Esophageal Clearance Upright Position No Impairment (WNL) Esophageal Observations Esophageal Function Esophageal clearance of barium table and thin barium was timely and WNL Clinical Impressions Dysphagia Type oropharyngeal swallow observed to be WNL Patient Appropriate for Therapy No Recommendations Diet Comments No diet changes recommended
== END ==
PROVIDERS: PCP Family Medicine; Referring Provider Otolaryngology; Visit Provider Otolaryngology
DX: R13.19 Other dysphagia (principal)
CPT/HCPCS: 74230; 92611

== ENCOUNTER → 2024-01-22 09:54 | Outpatient (CLI) | payer OTHER, SELFPAY ==
--- NOTE | 2024-01-22 10:10 | DI.RAD.S_ITS ---
PROCEDURE: XR HAND RT MIN 3V INDICATIONS: pain in right hand TECHNIQUE: 3 views of the hand(s) acquired. COMPARISON: None. FINDINGS: Bones: No fractures or dislocations. Carpal bones are normally aligned. No suspicious bony lesions. Soft tissues: No suspicious soft tissue calcifications. IMPRESSION: No acute bony abnormality. Dictated by: Gerson Quintana M.D. on 01/23/2024 at 0:55 Approved by: Gerson Quintana M.D. on 01/23/2024 at 0:56
== END ==
PROVIDERS: PCP Family Medicine; Referring Provider Naturopath; Visit Provider Naturopath
DX: M79.644 Pain in right finger(s) (principal)
CPT/HCPCS: 73130